=== PATIENT | male | born 1950 | race Caucasian/White ===

== ENCOUNTER 2017-06-13 17:28 | Inpatient (IN) | payer MEDICARE, BC ==
[2017-06-13] VITALS (265 sets, daily range): BP systolic 145; BP diastolic 104; PULSE 133; TEMP 99.1; O2SAT 94–100
[~2017-06-13] VITALS: Ht 182.9 cm; Wt 70.1 kg
[2017-06-13 18:12] LABS: MEAN CELL VOLUME 83 fl (80.0-100.0); MEAN CORPUSCULAR HGB CONC 31 g/dl (33.0-37.0); MEAN PLATELET VOLUME 9.4 fl (7.4-10.4); PLATELET COUNT 298 K/mm3 (130-400); RED BLOOD COUNT 3.67 M/mm3 (4.20-5.60); REDCELL DISTRIBUTION WIDTH-CV 16.9 % (11.5-14.5)
[2017-06-13 18:17] LABS: HEMATOCRIT 30.6 % (42.0-52.0); HEMOGLOBIN 9.5 g/dl (13.5-18.0); MEAN CORPUSCULAR HEMOGLOBIN 26 pg (27.0-31.0)
[2017-06-13 18:18] LABS: ADD PATHOLOGY DIFF REVIEW NO
[2017-06-13 18:19] LABS: ANION GAP 5 mmol/L (7-16); BLOOD UREA NITROGEN 18 mg/dL (9-20); CALCIUM 9.2 mg/dL (8.4-10.2); CARBON DIOXIDE 28 mmol/L (22-30); CHLORIDE 94 mmol/L (98-107); CREATININE, serum 0.45 mg/dL (0.66-1.25); GLUCOSE 221 mg/dL (74-106); POTASSIUM 4.4 mmol/L (3.4-5.0); SODIUM 127 mmol/L (137-145)
[2017-06-13 18:31] LABS: B-TYPE NATRIURETIC PEPTIDE 435 pg/mL (0-125)
[2017-06-13 18:34] LABS: TROPONIN-I < 0.012 ng/mL (0.000-0.034)
[2017-06-13 18:59] LABS: BAND 9 % (0-10); NEUTROPHILS 70 % (42.0-75.2); TOTAL CELLS COUNTED 100
[2017-06-13 19:00] LABS: HYPOCHROMIA 1+; PLATELET ESTIMATE INCREASED (NORMAL)
[2017-06-13] MEDS ORDERED: TYLEINFANT PO (20:17)
[2017-06-13] MEDS ORDERED: PROVENTIL0.09 MG/A1 IH (20:23)
[2017-06-13] MEDS ORDERED: PULMICORT0.5 MG/2 M IH (20:24)
[2017-06-13] MEDS ORDERED: ALBUTEROL0.83 MG/ML IH (20:24)
[2017-06-13] MEDS ORDERED: DECADRON PO (20:25)
[2017-06-13] MEDS ORDERED: TYLENOL PM EXTR1 TA1 PO (20:26)
[2017-06-13] MEDS ORDERED: LOMOTIL 0.025 M1 TAB PO (20:26)
[2017-06-13] MEDS ORDERED: PEPCID 40INJ PO (20:27)
[2017-06-13] MEDS ORDERED: COLACE LIQUI10 MG/ML PO (20:27)
[2017-06-13] MEDS ORDERED: FENTANYL 50MCG TD (20:28)
[2017-06-13] MEDS ORDERED: PERFOROMIS20 MCG/2 M IH (20:29)
[2017-06-13] MEDS ORDERED: LASIX 20MG TABL20 MG PO (20:29)
[2017-06-13] MEDS ORDERED: HYCET SOLN PO (20:30)
[2017-06-13] MEDS ORDERED: SYNTHROID0.05 MG/TA PO (20:32)
[2017-06-13] MEDS ORDERED: ATIVAN 2MG/ML2 MG/ML IV (20:34)
[2017-06-13] MEDS ORDERED: GLUCOPHAGE500 MG/TAB PO (20:35)
[2017-06-13] MEDS ORDERED: OXYCODONE H5 MG/5 ML PO (20:36)
[2017-06-13] MEDS ORDERED: ZOFRAN8 MG PO (20:36)
[2017-06-13] MEDS ORDERED: FIBERCON (20:37)
[2017-06-13] MEDS ORDERED: COMPAZINE 110 MG/TAB PO (20:38)
[2017-06-13] MEDS ORDERED: MUCINEX D1 TER PO (20:38)
[2017-06-13] MEDS ORDERED: FLOMAX 0.40.4 MG/CAP PO (20:39)
[2017-06-13] MEDS ORDERED: FLEET ENEM1 BOT/133 RC (20:39)
[2017-06-13] MEDS ORDERED: ULTRAM 50MG TAB50 MG PO (20:40)
[2017-06-13 23:11] LABS: MAGNESIUM 2.2 mg/dL (1.6-2.3); PHOSPHOROUS 3.3 mg/dL (2.5-4.5)
[2017-06-14] VITALS (1387 sets, daily range): BP systolic 121–171; BP diastolic 77–110; PULSE 109–134; TEMP 97–99.3; O2SAT 90–100
[2017-06-14 05:28] LABS: BASO % 0.3 % (0.0-2.0); GRAN # 10.1 (1.4-6.5); GRAN % 85.5 % (42.2-75.2); LYMPH # 0.7 (1.2-3.4); LYMPH % 5.7 % (20.0-51.0); MEAN CELL VOLUME 85 fl (80.0-100.0); MEAN CORPUSCULAR HGB CONC 31 g/dl (33.0-37.0); MEAN PLATELET VOLUME 9.4 fl (7.4-10.4); MONO # 0.5 (0.1-0.6); MONO % 3.9 % (1.7-9.3); PLATELET COUNT 209 K/mm3 (130-400); RED BLOOD COUNT 3.09 M/mm3 (4.20-5.60); REDCELL DISTRIBUTION WIDTH-CV 16.9 % (11.5-14.5); WHITE BLOOD COUNT 11.8 K/mm3 (4.8-10.8)
[2017-06-14 05:29] LABS: HEMATOCRIT 26.1 % (42.0-52.0); MEAN CORPUSCULAR HEMOGLOBIN 26 pg (27.0-31.0)
[2017-06-14 05:41] LABS: CALCIUM 8.4 mg/dL (8.4-10.2); CREATININE, serum 0.4 mg/dL (0.66-1.25); MAGNESIUM 1.9 mg/dL (1.6-2.3); PHOSPHOROUS 2.6 mg/dL (2.5-4.5); POTASSIUM 3.6 mmol/L (3.4-5.0)
[2017-06-14 08:20] LABS: ARTERIAL BLD GAS O2 SATURATION 98.2 % (92-100); ARTERIAL BLD GAS TCO2 CT 26.1; ARTERIAL BLOOD GAS BASE EXCESS 1.2 (-2-2); ARTERIAL BLOOD GAS pH 7.46 (7.35-7.45); OXYHEMOGLOBIN 97.1 %
[2017-06-14 08:21] LABS: ATS? YES
[2017-06-15] VITALS (1196 sets, daily range): BP systolic 127–150; BP diastolic 78–94; PULSE 107–124; TEMP 98–98.8; O2SAT 84–100
[2017-06-15 05:58] LABS: MEAN CELL VOLUME 84 fl (80.0-100.0); MEAN CORPUSCULAR HGB CONC 31 g/dl (33.0-37.0); MEAN PLATELET VOLUME 9.5 fl (7.4-10.4); PLATELET COUNT 213 K/mm3 (130-400); RED BLOOD COUNT 2.95 M/mm3 (4.20-5.60); REDCELL DISTRIBUTION WIDTH-CV 17.3 % (11.5-14.5); WHITE BLOOD COUNT 12.3 K/mm3 (4.8-10.8)
[2017-06-15 06:00] LABS: ADD PATHOLOGY DIFF REVIEW NO; HEMATOCRIT 24.8 % (42.0-52.0); HEMOGLOBIN 7.6 g/dl (13.5-18.0); MEAN CORPUSCULAR HEMOGLOBIN 26 pg (27.0-31.0)
[2017-06-15 06:11] LABS: CALCIUM 7.9 mg/dL (8.4-10.2); CREATININE, serum 0.46 mg/dL (0.66-1.25); MAGNESIUM 1.8 mg/dL (1.6-2.3); PHOSPHOROUS 2.2 mg/dL (2.5-4.5); POTASSIUM 3.3 mmol/L (3.4-5.0)
[2017-06-15 06:25] LABS: ANISOCYTOSIS 2+; BAND 13 % (0-10); HYPOCHROMIA 2+; MYELOCYTE 2 % (0-0); NEUTROPHILS 75 % (42.0-75.2); PLATELET ESTIMATE NORMAL (NORMAL); TOTAL CELLS COUNTED 100
[2017-06-15 10:39] LABS: ADJUSTED CALCIUM 9.3 mg/dL (8.4-10.2); ALBUMIN 2.5 gm/dL (3.5-5.0); BILIRUBIN,TOTAL 0.7 mg/dL (0.0-1.0); CALCIUM 8.1 mg/dL (8.4-10.2); CREATININE, serum 0.48 mg/dL (0.66-1.25); POTASSIUM 3.3 mmol/L (3.4-5.0); TOTAL PROTEIN 5.8 gm/dL (6.4-8.2)
[2017-06-16] VITALS (882 sets, daily range): BP systolic 141–161; BP diastolic 87–93; PULSE 109–115; TEMP 97.7–98.3; O2SAT 82–100
[2017-06-16 05:59] LABS: ADD PATHOLOGY DIFF REVIEW NO
[2017-06-16 06:06] LABS: MEAN CELL VOLUME 83 fl (80.0-100.0); MEAN CORPUSCULAR HGB CONC 31 g/dl (33.0-37.0); MEAN PLATELET VOLUME 8.5 fl (7.4-10.4); PLATELET COUNT 229 K/mm3 (130-400); RED BLOOD COUNT 3.23 M/mm3 (4.20-5.60); REDCELL DISTRIBUTION WIDTH-CV 17.2 % (11.5-14.5); WHITE BLOOD COUNT 10.4 K/mm3 (4.8-10.8)
[2017-06-16 06:09] LABS: HEMATOCRIT 26.8 % (42.0-52.0); HEMOGLOBIN 8.3 g/dl (13.5-18.0); MEAN CORPUSCULAR HEMOGLOBIN 26 pg (27.0-31.0)
[2017-06-16 06:14] LABS: CALCIUM 8.5 mg/dL (8.4-10.2); CREATININE, serum 0.46 mg/dL (0.66-1.25); MAGNESIUM 1.9 mg/dL (1.6-2.3); POTASSIUM 3.8 mmol/L (3.4-5.0)
[2017-06-16 06:25] LABS: BAND 24 % (0-10); METAMYELOCYTE 1 % (0-0); NEUTROPHILS 61 % (42.0-75.2); PLATELET ESTIMATE NORMAL (NORMAL); TOTAL CELLS COUNTED 100
[2017-06-16 06:26] LABS: HYPOCHROMIA 2+
[2017-06-16 06:27] LABS: ANISOCYTOSIS 1+; ROULEAUX 2+
[2017-06-17] VITALS (449 sets, daily range): BP systolic 93–180; BP diastolic 73–91; PULSE 97–111; TEMP 97.8–111; O2SAT 81–100
[2017-06-17 06:32] LABS: MEAN CELL VOLUME 85 fl (80.0-100.0); MEAN CORPUSCULAR HGB CONC 30 g/dl (33.0-37.0); MEAN PLATELET VOLUME 9.2 fl (7.4-10.4); PLATELET COUNT 260 K/mm3 (130-400); RED BLOOD COUNT 3.23 M/mm3 (4.20-5.60); REDCELL DISTRIBUTION WIDTH-CV 17.2 % (11.5-14.5); WHITE BLOOD COUNT 10.6 K/mm3 (4.8-10.8)
[2017-06-17 06:38] LABS: HEMATOCRIT 27.5 % (42.0-52.0); HEMOGLOBIN 8.2 g/dl (13.5-18.0); MEAN CORPUSCULAR HEMOGLOBIN 25 pg (27.0-31.0)
[2017-06-17 06:41] LABS: ADJUSTED CALCIUM 9.7 mg/dL (8.4-10.2); ALBUMIN 2.8 gm/dL (3.5-5.0); BILIRUBIN,TOTAL 0.4 mg/dL (0.0-1.0); CALCIUM 8.7 mg/dL (8.4-10.2); CREATININE, serum 0.47 mg/dL (0.66-1.25); TOTAL PROTEIN 6.2 gm/dL (6.4-8.2)
[2017-06-17 15:31] LABS: ARTERIAL BLD GAS O2 SATURATION 96.6 % (92-100); ARTERIAL BLD GAS TCO2 CT 31.6; ARTERIAL BLOOD GAS BASE EXCESS 5.2 (-2-2); ARTERIAL BLOOD GAS HCO3 30.2 meq/L (22-26); ARTERIAL BLOOD GAS PO2 91.2 mmHg (80-100); ARTERIAL BLOOD GAS pH 7.43 (7.35-7.45); OXYHEMOGLOBIN 95.7 %
[2017-06-17 15:32] LABS: ATS? YES
[2017-06-18] VITALS (772 sets, daily range): BP systolic 102–116; BP diastolic 64–73; PULSE 105–110; TEMP 97.9–98.3; O2SAT 80–100
[2017-06-18 05:39] LABS: ADJUSTED CALCIUM 9.7 mg/dL (8.4-10.2); ALBUMIN 2.9 gm/dL (3.5-5.0); BILIRUBIN,TOTAL 0.4 mg/dL (0.0-1.0); CALCIUM 8.8 mg/dL (8.4-10.2); CREATININE, serum 0.49 mg/dL (0.66-1.25); MAGNESIUM 1.9 mg/dL (1.6-2.3); PHOSPHOROUS 3.9 mg/dL (2.5-4.5); POTASSIUM 4.4 mmol/L (3.4-5.0); TOTAL PROTEIN 6.7 gm/dL (6.4-8.2)
== END 2017-06-18 14:35 | DRG 163 ==
LOC: COL.ER 17:28 → ICU 18:55 → COL.ER 18:55 → ICU 18:55 → MEDICAL 06-16 16:27 → ICU 06-16 16:27 → MEDICAL 06-16 16:27 → ICU 06-17 15:20
PROVIDERS: Emergency Medicine; Internal Medicine; Internal Medicine Cardiovascular Disease; Internal Medicine Pulmonary Disease
PROC: 02HV33Z Insertion of Infusion Device into Superior Vena Cava, Percutaneous Approach (ICD-10-PCS; 2017-06-14)
PROC: 0B948ZZ Drainage of Right Upper Lobe Bronchus, Via Natural or Artificial Opening Endoscopic (ICD-10-PCS; principal; 2017-06-17)
PROC: 0B9B8ZZ Drainage of Left Lower Lobe Bronchus, Via Natural or Artificial Opening Endoscopic (ICD-10-PCS; 2017-06-17)
PROC: 0B988ZZ Drainage of Left Upper Lobe Bronchus, Via Natural or Artificial Opening Endoscopic (ICD-10-PCS; 2017-06-17)
PROC: 0B998ZZ Drainage of Lingula Bronchus, Via Natural or Artificial Opening Endoscopic (ICD-10-PCS; 2017-06-17)
PROC: 0B968ZZ Drainage of Right Lower Lobe Bronchus, Via Natural or Artificial Opening Endoscopic (ICD-10-PCS; 2017-06-17)
PROC: 0B958ZZ Drainage of Right Middle Lobe Bronchus, Via Natural or Artificial Opening Endoscopic (ICD-10-PCS; 2017-06-17)
DX: J96.21 Acute and chronic respiratory failure with hypoxia (principal); J18.9 Pneumonia, unspecified organism; A41.9 Sepsis, unspecified organism; E87.1 Hypo-osmolality and hyponatremia; E46 Unspecified protein-calorie malnutrition; I69.351 Hemiplegia and hemiparesis following cerebral infarction affecting right dominant side; T17.590A Other foreign object in bronchus causing asphyxiation, initial encounter; Z66 Do not resuscitate; E11.65 Type 2 diabetes mellitus with hyperglycemia; E03.9 Hypothyroidism, unspecified; I16.0 Hypertensive urgency; J44.9 Chronic obstructive pulmonary disease, unspecified; D63.8 Anemia in other chronic diseases classified elsewhere; C14.8 Malignant neoplasm of overlapping sites of lip, oral cavity and pharynx; Z93.0 Tracheostomy status; Z68.20 Body mass index [BMI] 20.0-20.9, adult
CPT/HCPCS: 99223-AI; 99233-AI; 99239; C1751; J0692; J1644; J1650; J1815; J1956; J2060; J2185; J2250; J2543; J2930; J3010; J3370; J3480; J7030; J7050

== ENCOUNTER → 2017-08-07 | Outpatient (CLI) | payer MEDICARE, BC ==
[~2017-08-07] MED LIST: ALBUTEROL0.83 MG/ML IH; ATIVAN 2MG/ML2 MG/ML IV; COLACE LIQUI10 MG/ML PO; COMPAZINE 110 MG/TAB PO; DECADRON PO; FENTANYL 50MCG TD; FIBERCON; FLEET ENEM1 BOT/133 RC; FLOMAX 0.40.4 MG/CAP PO; GLUCOPHAGE500 MG/TAB PO; HYCET SOLN PO; LASIX 20MG TABL20 MG PO; LOMOTIL 0.025 M1 TAB PO; MUCINEX D1 TER PO; OXYCODONE H5 MG/5 ML PO; PEPCID 40INJ PO; PERFOROMIS20 MCG/2 M IH; PROVENTIL0.09 MG/A1 IH; PULMICORT0.5 MG/2 M IH; SYNTHROID0.05 MG/TA PO; TYLEINFANT PO; TYLENOL PM EXTR1 TA1 PO; ULTRAM 50MG TAB50 MG PO; ZOFRAN8 MG PO
[2017-08-07 15:02] LABS: BASO # 0.1 (0.0-0.2); BASO % 0.6 % (0.0-2.0); EOS # 0.3 (0.0-0.7); EOS % 3.4 % (0-4.0); GRAN # 6.9 (1.4-6.5); GRAN % 77.5 % (42.2-75.2); HEMATOCRIT 30.7 % (42.0-52.0); HEMOGLOBIN 9.1 g/dl (13.5-18.0); LYMPH # 0.9 (1.2-3.4); LYMPH % 10.2 % (20.0-51.0); MEAN CELL VOLUME 80 fl (80.0-100.0); MEAN CORPUSCULAR HEMOGLOBIN 24 pg (27.0-31.0); MEAN CORPUSCULAR HGB CONC 30 g/dl (33.0-37.0); MEAN PLATELET VOLUME 9.8 fl (7.4-10.4); MONO # 0.7 (0.1-0.6); MONO % 7.8 % (1.7-9.3); PLATELET COUNT 335 K/mm3 (130-400); RED BLOOD COUNT 3.82 M/mm3 (4.20-5.60); REDCELL DISTRIBUTION WIDTH-CV 17.8 % (11.5-14.5); WHITE BLOOD COUNT 8.9 K/mm3 (4.8-10.8)
[2017-08-07 15:24] LABS: ADJUSTED CALCIUM 9.5 mg/dL (8.4-10.2); BILIRUBIN,TOTAL 0.4 mg/dL (0.0-1.0); CALCIUM 8.7 mg/dL (8.4-10.2); CREATININE, serum 0.41 mg/dL (0.66-1.25); POTASSIUM 4.8 mmol/L (3.4-5.0); TOTAL PROTEIN 6.5 gm/dL (6.4-8.2)
[2017-08-07 15:54] LABS: THYROID STIMULATING HORMONE 6.32 uIU/mL (0.465-4.680)
== END ==
LOC: ZCOL.LAB 14:53
PROVIDERS: Internal Medicine
DX: J18.8 Other pneumonia, unspecified organism (principal)

== ENCOUNTER 2017-08-08 10:55 | Emergency (ER) | payer MEDICARE, BC ==
[2017-08-08 10:57] VITALS: TEMP 97.4
[2017-08-08 11:43] LABS: BASO % 0.5 % (0.0-2.0); EOS # 0.4 (0.0-0.7); EOS % 4.3 % (0-4.0); GRAN # 5.9 (1.4-6.5); LYMPH # 1.3 (1.2-3.4); LYMPH % 15.5 % (20.0-51.0); MEAN CELL VOLUME 79 fl (80.0-100.0); MEAN CORPUSCULAR HGB CONC 30 g/dl (33.0-37.0); MEAN PLATELET VOLUME 9.1 fl (7.4-10.4); MONO # 0.9 (0.1-0.6); MONO % 10.2 % (1.7-9.3); PLATELET COUNT 283 K/mm3 (130-400); RED BLOOD COUNT 3.77 M/mm3 (4.20-5.60); REDCELL DISTRIBUTION WIDTH-CV 17.5 % (11.5-14.5); WHITE BLOOD COUNT 8.6 K/mm3 (4.8-10.8)
[2017-08-08 11:44] LABS: HEMATOCRIT 29.9 % (42.0-52.0); HEMOGLOBIN 9.1 g/dl (13.5-18.0); MEAN CORPUSCULAR HEMOGLOBIN 24 pg (27.0-31.0)
[2017-08-08 11:47] LABS: INR 1.2 (0.8-3.0); PROTHROMBIN TIME 13.9 SECONDS (9.7-12.8)
[2017-08-08 11:49] LABS: PARTIAL THROMBOPLASTIN TIME 30.4 SECONDS (26.0-37.0)
[2017-08-08 11:53] LABS: ADJUSTED CALCIUM 9.3 mg/dL (8.4-10.2); ALANINE AMINOTRANSFERASE 24 U/L (21-72); ALKALINE PHOSPHATASE 115 U/L (50-136); ANION GAP 7 mmol/L (7-16); BILIRUBIN,TOTAL 0.3 mg/dL (0.0-1.0); BLOOD UREA NITROGEN 12 mg/dL (9-20); CALCIUM 8.5 mg/dL (8.4-10.2); CARBON DIOXIDE 29 mmol/L (22-30); CHLORIDE 96 mmol/L (98-107); CREATININE, serum 0.44 mg/dL (0.66-1.25); GLUCOSE 163 mg/dL (74-106); LIPASE 60 U/L (23-300); POTASSIUM 3.9 mmol/L (3.4-5.0); SODIUM 132 mmol/L (137-145); TOTAL PROTEIN 6.8 gm/dL (6.4-8.2)
[2017-08-08 12:06] LABS: TROPONIN-I < 0.012 ng/mL (0.000-0.034)
[2017-08-08 14:30] VITALS: BP 135/87; PULSE 97
== END 2017-08-08 14:36 | disposition home or self-care (01) ==
LOC: COL.ER 10:55
PROVIDERS: Emergency Medicine
DX: R07.89 Other chest pain (principal); Z86.73 Personal history of transient ischemic attack (TIA), and cerebral infarction without residual deficits; Z79.84 Long term (current) use of oral hypoglycemic drugs; Z86.79 Personal history of other diseases of the circulatory system

== ENCOUNTER 2017-08-09 17:20 | Emergency (ER) | payer MEDICARE, BC ==
[~2017-08-09] VITALS: Ht 175.3 cm; Wt 68.2 kg
[2017-08-09 17:21] VITALS: BP 85/55; PULSE 105; TEMP 98.2
[2017-08-09 18:38] LABS: BASO % 0.4 % (0.0-2.0); EOS # 0.3 (0.0-0.7); EOS % 2.5 % (0-4.0); GRAN # 7.5 (1.4-6.5); GRAN % 73.3 % (42.2-75.2); LYMPH # 1.3 (1.2-3.4); LYMPH % 12.6 % (20.0-51.0); MEAN CELL VOLUME 79 fl (80.0-100.0); MEAN CORPUSCULAR HGB CONC 31 g/dl (33.0-37.0); MEAN PLATELET VOLUME 9.4 fl (7.4-10.4); MONO # 1.1 (0.1-0.6); MONO % 10.6 % (1.7-9.3); PLATELET COUNT 317 K/mm3 (130-400); RED BLOOD COUNT 3.99 M/mm3 (4.20-5.60); REDCELL DISTRIBUTION WIDTH-CV 17.6 % (11.5-14.5); WHITE BLOOD COUNT 10.3 K/mm3 (4.8-10.8)
[2017-08-09 18:40] LABS: HEMATOCRIT 31.6 % (42.0-52.0); HEMOGLOBIN 9.7 g/dl (13.5-18.0); MEAN CORPUSCULAR HEMOGLOBIN 24 pg (27.0-31.0)
[2017-08-09 18:52] LABS: ADJUSTED CALCIUM 9.3 mg/dL (8.4-10.2); ALANINE AMINOTRANSFERASE 25 U/L (21-72); ALBUMIN 3.3 gm/dL (3.5-5.0); ALKALINE PHOSPHATASE 123 U/L (50-136); ANION GAP 8 mmol/L (7-16); BILIRUBIN,TOTAL 0.4 mg/dL (0.0-1.0); BLOOD UREA NITROGEN 11 mg/dL (9-20); CALCIUM 8.7 mg/dL (8.4-10.2); CARBON DIOXIDE 28 mmol/L (22-30); CHLORIDE 96 mmol/L (98-107); CREATININE, serum 0.42 mg/dL (0.66-1.25); GLUCOSE 189 mg/dL (74-106); POTASSIUM 4.2 mmol/L (3.4-5.0); SODIUM 131 mmol/L (137-145); TOTAL PROTEIN 7.3 gm/dL (6.4-8.2)
[2017-08-09 19:06] LABS: B-TYPE NATRIURETIC PEPTIDE 125 pg/mL (0-125); TROPONIN-I < 0.012 ng/mL (0.000-0.034)
== END 2017-08-09 20:05 | disposition home or self-care (01) ==
LOC: COL.ER 17:20
PROVIDERS: Emergency Medicine
DX: R06.02 Shortness of breath (principal); J44.9 Chronic obstructive pulmonary disease, unspecified; E11.9 Type 2 diabetes mellitus without complications; Z86.73 Personal history of transient ischemic attack (TIA), and cerebral infarction without residual deficits; F17.200 Nicotine dependence, unspecified, uncomplicated; Z99.81 Dependence on supplemental oxygen; Z79.84 Long term (current) use of oral hypoglycemic drugs; Z93.0 Tracheostomy status